=== PATIENT | female | born 1990 | race Caucasian/White ===

== ENCOUNTER 2017-09-17 08:46 | Emergency (ER) | payer OTHER ==
[~2017-09-17] VITALS: Ht 170.2 cm; Wt 60.9 kg
[2017-09-17 08:49] VITALS: TEMP 98.8
[2017-09-17] MEDS ORDERED: EMOQUETTE 0.151 TAB PO (08:54)
[2017-09-17 09:18] VITALS: BP 131/69; PULSE 100
== END 2017-09-17 09:28 | disposition home or self-care (01) ==
LOC: COL.ER 08:46
DX: S93.402A Sprain of unspecified ligament of left ankle, initial encounter (principal); X58.XXXA Exposure to other specified factors, initial encounter; Y92.009 Unspecified place in unspecified non-institutional (private) residence as the place of occurrence of the external cause

== ENCOUNTER 2018-03-27 19:54 | Emergency (ER) | payer OTHER ==
[~2018-03-27] VITALS: Ht 170.2 cm; Wt 58.2 kg
[~2018-03-27 19:54] MED LIST: EMOQUETTE 0.151 TAB PO
[2018-03-27 20:00] VITALS: TEMP 98.1
[2018-03-27] MEDS ORDERED: PEPCID 20MG TAB20 MG PO (21:42)
[2018-03-27] MEDS ORDERED: PREDNISONE20 MG PO (21:42)
[2018-03-27 22:24] VITALS: BP 136/70; PULSE 87
== END 2018-03-27 22:25 | disposition home or self-care (01) ==
LOC: COL.ER 19:54
DX: T78.1XXA Other adverse food reactions, not elsewhere classified, initial encounter (principal); Z88.0 Allergy status to penicillin
CPT/HCPCS: J7512

== ENCOUNTER 2018-11-13 18:22 | Emergency (ER) | payer OTHER ==
[~2018-11-13] VITALS: Ht 170.2 cm; Wt 56.4 kg
[~2018-11-13 18:22] MED LIST changes: +PEPCID 20MG TAB20 MG PO; +PREDNISONE20 MG PO
[2018-11-13 18:25] VITALS: BP 122/89; TEMP 99
[2018-11-13 19:14] LABS: BASO % 0.2 % (0.0-2.0); EOS # 0.1 (0.0-0.7); GRAN # 7.2 (1.4-6.5); GRAN % 83.5 % (42.2-75.2); HEMATOCRIT 43.5 % (37.0-47.0); LYMPH # 0.9 (1.2-3.4); LYMPH % 10.7 % (20.0-51.0); MEAN CELL VOLUME 91 fl (80.0-100.0); MEAN CORPUSCULAR HEMOGLOBIN 31 pg (27.0-31.0); MEAN CORPUSCULAR HGB CONC 35 g/dl (33.0-37.0); MEAN PLATELET VOLUME 9.7 fl (7.4-10.4); MONO # 0.4 (0.1-0.6); MONO % 4.4 % (1.7-9.3); PLATELET COUNT 243 K/mm3 (130-400); RED BLOOD COUNT 4.78 M/mm3 (4.10-5.30); REDCELL DISTRIBUTION WIDTH-CV 11.8 % (11.5-14.5)
[2018-11-13 19:26] LABS: ALANINE AMINOTRANSFERASE 11 U/L (9-52); ALBUMIN 4.1 gm/dL (3.5-5.0); ALKALINE PHOSPHATASE 42 U/L (50-136); ANION GAP 14 mmol/L (7-16); AST,SGOT 22 U/L (15-37); BILIRUBIN,TOTAL 0.6 mg/dL (0.0-1.0); BLOOD UREA NITROGEN 8 mg/dL (7-17); CARBON DIOXIDE 24 mmol/L (22-30); CHLORIDE 104 mmol/L (98-107); GLUCOSE 109 mg/dL (74-106); POTASSIUM 3.6 mmol/L (3.4-5.0); SODIUM 141 mmol/L (137-145); TOTAL PROTEIN 7.2 gm/dL (6.4-8.2)
[2018-11-13 19:38] LABS: TROPONIN-I < 0.012 ng/mL (0.000-0.035)
[2018-11-13] MEDS ORDERED: PHENERGAN 25 TA25 MG PO (21:32)
[2018-11-13 21:46] VITALS: PULSE 77
== END 2018-11-13 21:45 | disposition home or self-care (01) ==
LOC: COL.ER 18:22
PROVIDERS: Emergency Medicine
DX: R07.89 Other chest pain (principal); Z88.0 Allergy status to penicillin
CPT/HCPCS: J1885; J2405; J7030